=== PATIENT | male | born 1995 | race Caucasian/White ===

== ENCOUNTER 2020-12-04 09:30 | Emergency (ER) | payer MEDICAID | END 2020-12-04 09:40 | disposition left against medical advice (07) | LOC: ER 09:30 | DX: F10.10 Alcohol abuse, uncomplicated (principal); I49.9 Cardiac arrhythmia, unspecified; Z53.21 Procedure and treatment not carried out due to patient leaving prior to being seen by health care provider; Y90.9 Presence of alcohol in blood, level not specified | CPT/HCPCS: 93005 ==

== ENCOUNTER 2021-06-11 03:35 | Emergency (ER) | payer MEDICAID ==
[~2021-06-11] VITALS: Ht 180.3 cm; Wt 66.0 kg
[2021-06-11 03:42] VITALS: BP 112/68
[2021-06-11] MEDS ORDERED: TETANUS, DIPHTHERIA, PERTUSSIS VAC/PF 0.5ML (>10YR OLD) IM ONE (04:15)
[2021-06-11] MEDS ORDERED: IBUPROFEN 800MG TABLET PO ONE (04:15)
[2021-06-11] MEDS ORDERED: HYDROCODONE/ACETAMINOPHEN 5/325MG TABLET PO ONE (04:45)
== END 2021-06-11 05:49 | disposition left against medical advice (07) ==
LOC: ER 03:35
DX: H60.02 Abscess of left external ear (principal)
CPT/HCPCS: 10060; 90471; 90715; 99283; A4217; Z7610